=== PATIENT | female | born 1975 | race Caucasian/White ===

== ENCOUNTER 2021-01-18 17:01 | Observation (INO) | payer OTHER ==
[~2021-01-18] VITALS: Ht 157.5 cm; Wt 74.8 kg
[2021-01-18 18:04] LABS: BASOPHILS ABSOLUTE AUTO 0.02 K/mm3 (0.00-0.23); BASOPHILS PERCENT AUTO 0 % (0-2); EOSINOPHILS PERCENT AUTO 0 % (0-6); Hematocrit 38.7 % (33.0-51.0); Hemoglobin 12.5 g/dL (11.5-16.0); IMMATURE GRAN ABSOLUTE AUTO 0.05 K/mm3 (0.00-0.10); IMMATURE GRAN PERCENT AUTO 1 % (0-1); LYMPHOCYTES PERCENT AUTO 26 % (21-46); MONOCYTES PERCENT AUTO 6 % (4-13); Mean Corpuscular HGB 28.5 pg (26.0-34.0); Mean Corpuscular HGB Conc 32.3 g/dL (31.5-36.5); Mean Corpuscular Volume 88 fL (80-100); Mean Platelet Volume 9.7 fL (9.1-12.4); NEUTROPHILS PERCENT AUTO 68 % (41-73); Platelet Count 280 K/mm3 (150-400); RDW Coefficient Variation 14.6 % (11.7-14.2); Red Blood Cell Count 4.38 M/mm3 (3.80-5.20); White Blood Cell Count 10.57 K/mm3 (4.00-11.30)
[2021-01-18 18:22] LABS: Alanine Aminotransfer (ALT/SGP 19 U/L (12-78); Albumin, Blood 3.7 g/dL (3.4-5.0); Albumin/Globulin Ratio 1.1 (0.8-1.8); Alk Phos 60 U/L (50-136); Anion Gap 4 mmol/L (6-16); Aspartate Aminotrans (AST/SGOT 16 U/L (12-37); Bilirubin, Total 0.5 mg/dL (0.1-1.0); Blood Urea Nitrogen 12 mg/dL (8-24); Bun/Creatinine Ratio 17.2 (12.0-20.0); CO2, Blood 26 mmol/L (21-32); Chloride, Blood 110 mmol/L (98-108); Globulin, Blood 3.4 g/dL (2.2-4.0); Glomerular Filtration Rate >60 (60-); Glucose, Blood 90 mg/dL (70-99); Potassium, Blood 3.5 mmol/L (3.5-5.5); Sodium, Blood 140 mmol/L (136-145); Total Protein, Blood 7.1 g/dL (6.4-8.2)
[2021-01-19 03:26] LABS: SARS-Cov-2 (COVID-19) PCR, MMC NEGATIVE (NEGATIVE)
--- NOTE | 2021-01-19 04:10 | NUR ---
PT ADMITTED FROM ER AT APPROX 0200 FOR APPENDICITIS. PT A&O X4. VS WNL. INDEPENDENT IN ROOM. PT NPO WITH IVF INFUSING PER ORDERS. MEDICATED WITH 4MG OF MORPHINE FOR 8/10 PAIN. PT CURRENTLY RESTING. PLAN FOR POSSIBLE SURGERY TODAY.
--- NOTE | 2021-01-19 04:12 | NUR ---
SHIFT SUMMARY: PT POD#3 FOR A ROBOTIC LAP HYSTER. PAIN TOLERABLE THROUGHOUT SHIFT WITHOUT NEED FOR PAIN MEDICATION. PT PASSING FLATUS. VOIDING WELL AND TOLERATING PO. LAP SITES C/D/I WITHOUT DRG. HEPARIN GTT INFUSING PER EMAR. RATE DECREASED PER PHARMACY FOR A CRITICAL HIGH PTT. AWAITING INR TO BE AT A THERAPEUTIC RANGE.
--- NOTE | 2021-01-19 11:53 | NUR ---
PT TAKEN TO DAY SURGERY, DR. AIKEN HERE TO SEE PT.
--- NOTE | 2021-01-19 12:07 | NUR ---
History, Chart, Medications and Allergies reviewed before start of procedure.Lungs clear T/O to Auscultation. Pre-Op teaching done. Pt verbalizes understanding. Patient confirms NPO status and agrees with scheduled surgery.
--- NOTE | 2021-01-19 12:50 | NUR ---
PT C/O NAUSEA. ZOFRAN 4MG IVP GIVEN PER DR CASTELLANOS. AWAITS TO GO FOR SURGERY. CONTINUE TO MONITOR AND TX PRN.
--- NOTE | 2021-01-19 13:01 | NUR ---
GOOD RELIEF WITH ZOFRAN. STATES "FEELING BETTER".
--- NOTE | 2021-01-19 13:38 | NUR ---
PT IN OR.
--- NOTE | 2021-01-19 15:05 | NUR ---
ARRIVED FROM PACU VIA GUREUSEBIO, S/P LAP APPENDICITIS, PT ABLE TO GET OOB AND TRANSFERRED SELF TO BED, REPORTS PAIN IS "OK" AT THIS TIME, DENIES ANY NAUSEA, CONT. TO MONITOR FOR ANY CHANGES.
--- NOTE | 2021-01-19 17:54 | NUR ---
SUMMARY VSS, S/P LAP APPY, DENIES ANY NEED FOR PAIN MEDS, TOLERATING REGULAR FOOD WELL, DENIES ANY NAUSEA, ABD LAP INCISIONS C/D/I, OOB TO THE BATHROOM TO VOID, NO ACUTE CHANGES THIS SHIFT.
--- NOTE | 2021-01-20 05:23 | NUR ---
POD 1 S/P LAP APPY. PT VSS T/O NIGHT. DRESSINGS CDI. PAIN MGD W/TORADOL W/REP RELIEF. PT HAD NO N/O N/V, REP +FLAUTS, IS VOIDING URINE W/O DIFFICULTY. PT AMB INDEP IN HALLS, JAMES WELL. IVF AND ABX CONT PER ORDERS. PLAN TO D/C HOME TODAY.
[2021-01-20] MEDS ORDERED: OXYC5 PO (08:58)
--- NOTE | 2021-01-20 09:56 | NUR ---
DISCHARGED TO HOME ACCOMPANIED BY MOTHER. PT REPORTS PAIN IS ADEQUATELY CONTROLLED, JAMES PO FOOD AND FLUIDS WITHOUT NAUSEA. VOIDING CLEAR YELLOW URINE. PT AMBULATING INDEPENDENTLY IN ROOM.
== END 2021-01-20 09:58 | disposition home or self-care (01) ==
LOC: ER 17:01 → SURS 17:02
PROVIDERS: Physician Assistant; Surgery; ADMIT Surgery
PROC: 0DTJ4ZZ Resection of Appendix, Percutaneous Endoscopic Approach (ICD-10-PCS; principal; 2021-01-19 12:30)
DX: K35.80 Unspecified acute appendicitis (principal); K82.4 Cholesterolosis of gallbladder; Z87.442 Personal history of urinary calculi; Z20.822 Contact with and (suspected) exposure to COVID-19
CPT/HCPCS: 36415; 74177; 76705; 80053; 83690; 85025; 88304; 96365-59; 96366; 96375; 96376; 99285-25; G0378; J0295; J1100; J1885; J2250; J2270; J2405; J2704; J3010; J7042; J7120; Q9967; U0004

== ENCOUNTER → 2023-03-16 | Outpatient (CLI) | payer OTHER ==
[~2023-03-16] MED LIST: OXYC5 PO
[2023-03-17 12:59] LABS: Candida species (DNA Probe) Negative (NEGATIVE); G. vaginalis (DNA Probe) Negative (NEGATIVE); T. vaginalis (DNA Probe) Negative (NEGATIVE)
== END | disposition home or self-care (01) ==
LOC: LAB 17:59 → LAB SHORT 17:59
PROVIDERS: Advanced Practice Midwife
DX: N76.0 Acute vaginitis (principal)
CPT/HCPCS: 87480; 87510; 87660

== ENCOUNTER → 2025-03-20 | Outpatient (CLI) | payer OTHER | LOC: LAB 10:16 → LAB SHORT 10:16 | PROVIDERS: Advanced Practice Midwife | DX: Z01.419 Encounter for gynecological examination (general) (routine) without abnormal findings (principal) | CPT/HCPCS: 87624; G0145 ==